=== PATIENT | female | born 2005 | race Caucasian/White ===

== ENCOUNTER 2024-02-22 10:37 | Emergency (ER) | payer SELFPAY ==
[~2024-02-22] VITALS: Ht 162.6 cm; Wt 90.9 kg
[2024-02-22 10:58] VITALS: TEMP 98.2
[2024-02-22 13:49] LABS: BASO % 0.5 % (0.0-2.0); EOS # 0.1 K/mm3 (0.0-0.7); EOS % 0.8 % (0.0-4.0); GRAN % 60.2 % (42.2-75.2); HEMATOCRIT 38.8 % (35.0-45.0); HEMOGLOBIN 12.9 g/dl (12.0-15.0); LYMPH # 2.6 K/mm3 (1.2-3.4); LYMPH % 31.2 % (20.0-51.0); MEAN CELL VOLUME 83 fl (80.0-95.0); MEAN CORPUSCULAR HEMOGLOBIN 28 pg (26-32); MEAN CORPUSCULAR HGB CONC 33 g/dl (33.0-37.0); MEAN PLATELET VOLUME 10.7 fl (7.4-10.4); MONO # 0.6 K/mm3 (0.1-0.6); MONO % 6.9 % (1.7-9.3); PLATELET COUNT 263 K/mm3 (130-400); RED BLOOD COUNT 4.69 M/mm3 (4.10-5.30); REDCELL DISTRIBUTION WIDTH-CV 13.4 % (11.5-14.5)
[2024-02-22 14:06] LABS: ALBUMIN 4.1 g/dL (3.5-5.0); BILIRUBIN,TOTAL 0.2 mg/dL (0.2-1.2); CALCIUM 9.6 mg/dL (8.4-10.2); CREATININE, serum 0.76 mg/dL (0.57-1.11); POTASSIUM 4.2 mEq/L (3.5-4.5); TOTAL PROTEIN 7.8 g/dl (6.2-8.1)
[2024-02-22 14:56] VITALS: BP 137/87; PULSE 81
== END 2024-02-22 14:55 | disposition home or self-care (01) ==
LOC: COL.ER 10:37
PROVIDERS: Personal Emergency Response Attendant
DX: N93.9 Abnormal uterine and vaginal bleeding, unspecified (principal)